=== PATIENT | female | born 1985 | race American Indian/Alaskan Native ===

== ENCOUNTER 2017-11-30 09:49 | Emergency (ER) | payer OTHER ==
[~2017-11-30] VITALS: Ht 157.5 cm; Wt 68.0 kg
[2017-11-30] MEDS ORDERED: PRENATAL 19 TA1 EAC1 (10:01)
== END 2017-11-30 16:07 | disposition home or self-care (01) ==
LOC: ER 09:49
DX: O26.891 Other specified pregnancy related conditions, first trimester (principal); S30.0XXA Contusion of lower back and pelvis, initial encounter; V49.9XXA Car occupant (driver) (passenger) injured in unspecified traffic accident, initial encounter; Y93.89 Activity, other specified; Y92.488 Other paved roadways as the place of occurrence of the external cause; Y99.8 Other external cause status; Z3A.10 10 weeks gestation of pregnancy

== ENCOUNTER 2018-06-13 15:30 | Inpatient (IN) | payer OTHER ==
[~2018-06-13] VITALS: Ht 157.5 cm; Wt 79.8 kg
[~2018-06-13 15:30] MED LIST: PRENATAL 19 TA1 EAC1
[2018-06-20] MEDS ORDERED: ZYRTEC10 MG PO (09:42)
== END 2018-06-22 12:57 | disposition home or self-care (01) | DRG 775 ==
LOC: LDR 06-20 03:51 → OB/GYN 06-20 04:26 → LDR 06-20 04:50 → OB/GYN 06-20 18:51
PROC: 10E0XZZ Delivery of Products of Conception, External Approach (ICD-10-PCS; principal; 2018-06-20)
PROC: 4A1HXCZ Monitoring of Products of Conception, Cardiac Rate, External Approach (ICD-10-PCS; 2018-06-20)
PROC: 0HQ9XZZ Repair Perineum Skin, External Approach (ICD-10-PCS; 2018-06-20)
PROC: 4A033R1 Measurement of Arterial Saturation, Peripheral, Percutaneous Approach (ICD-10-PCS; 2018-06-20)
DX: O70.0 First degree perineal laceration during delivery (principal); Z3A.39 39 weeks gestation of pregnancy; Z37.0 Single live birth